=== PATIENT | female | born 1950 | race Caucasian/White ===

== ENCOUNTER 2016-07-03 19:46 | Emergency (ER) | payer MEDICARE ==
[~2016-07-03] VITALS: Ht 167.6 cm; Wt 65.0 kg
[2016-07-03 19:49] VITALS: BP 210/89; PULSE 89; RESP 15; TEMP 97.1; O2SAT 100
[2016-07-03] MEDS ORDERED: ATOR20TA15 PO (21:43)
[2016-07-03] MEDS ORDERED: LEVO50TA4 PO (21:43)
[2016-07-03] MEDS ORDERED: GLIP5TAB8 PO (21:43)
[2016-07-03] MEDS ORDERED: METF1000 PO (21:43)
[2016-07-03] MEDS ORDERED: DIAZ5TAB PO (21:43)
[2016-07-03] MEDS ORDERED: SODIUM CHLORIDE 0.9% FLUSH 10 ML FLUSH IV FLUSH PRN (22:00)
[2016-07-03] MEDS ORDERED: SODIUM CHLOR 0.9% 1000 ML INJ 1,000 ML IV SCH (22:00)
[2016-07-03] MEDS ORDERED: ONDANSETRON HCL 4 MG/2 ML VIAL IVP ONE (22:00)
[2016-07-03] MEDS ORDERED: MORPHINE SULFATE 8 MG/ML INJ IV PUSH ONE (22:00)
[2016-07-03 22:46] LABS: BASOPHIL % 0.6 % (0.0-2.0); EOSINOPHIL # 0.1 TH/MM3 (0-0.4); EOSINOPHIL % 1.5 % (0.0-4.0); HEMATOCRIT 34.8 % (35.0-46.0); HEMO FLAGS DIFF FINAL; LYMPH % 25.5 % (9.0-44.0); LYMPHOCYTE # 1.5 TH/MM3 (1.0-4.8); MEAN CELL VOLUME 91.3 FL (80.0-100.0); MEAN CORPUSCULAR HEMOGLOBIN 31.9 PG (27.0-34.0); MEAN CORPUSCULAR HGB CONC 34.9 % (32.0-36.0); MONO % 6.7 % (0.0-8.0); NEUT % 65.7 % (16.0-70.0); PLATELET COUNT 254 TH/MM3 (150-450); RED BLOOD COUNT 3.82 MIL/MM3 (4.00-5.30); RED CELL DISTRIBUTION WIDTH 12.8 % (11.6-17.2); WHITE BLOOD COUNT 6.1 TH/MM3 (4.0-11.0)
[2016-07-03 22:48] LABS: BLOOD, URINE NEG (NEG); COMMENT (UR) CULT NOT INDICATED; CULTURE IF INDICATED CULT NOT INDICATED; GLUCOSE,URINE NEG (NEG); KETONE, URINE TRACE mg/dL (NEG); NITRITE,URINE NEG (NEG); PH, URINE 5.5 (5.0-8.5); SQUAMOUS EPITHELIAL CELL URINE <1 /hpf (0-5); URINE COLOR LIGHT-YELLOW (YELLW/STRAW)
[2016-07-03 22:55] VITALS: O2SAT 100
[2016-07-03 23:00] VITALS: BP 158/78; PULSE 64; RESP 18; O2SAT 98
[2016-07-03 23:00] LABS: ANION GAP 8 MEQ/L (5-15); AST (GOT) 28 U/L (15-37); BICARBONATE 26.6 MEQ/L (21.0-32.0); BLOOD UREA NITROGEN 11 MG/DL (7-18); CHLORIDE 97 MEQ/L (98-107); GLOMERULAR FILTRATION RATE 89 ML/MIN (>89); SODIUM (NA) 132 MEQ/L (136-145)
[2016-07-03 23:04] LABS: ALKALINE PHOSPHATASE 67 U/L (45-117); ALT (GPT) 44 U/L (10-53); TOTAL BILIRUBIN ADULT 1.1 MG/DL (0.2-1.0)
--- NOTE | 2016-07-04 00:34 | PD ---
HPI Chief Complaint: Back/ Neck Pain or Injury Time Seen by Provider: 22:00 Travel History International Travel<30 days: No Contact w/Intl Traveler<30days: No Traveled to known affect area: No History of Present Illness HPI 66-year-old female complains of pain in the right flank for 4 days. It started when she woke up. Pain radiates to mid-thoracic spine. Pain is worse with supine positioning and sitting. It's better with standing positions and ambulation. No perianal/perineal numbness/paresthesia. No fecal/urinary incontinence. PFSH Past Medical History High Cholesterol: Yes Diabetes: Yes Patient Takes Glucophage: Yes Thyroid Disease: Yes Tetanus Vaccination: < 5 Years Influenza Vaccination: No : 2 Para: 2 Tubal Ligation: Yes Social History Alcohol Use: Yes (occ.) Tobacco Use: No Substance Use: No Allergies-Medications (Allergen,Severity, Reaction): Coded Allergies: No Known Allergies (Unverified , 07/03/16) Reported Meds & Prescriptions Reported Meds & Active Scripts Active Lortab (Hydrocodone-Acetaminophen) 5-325 Mg Tab 1-2 Tab PO Q6H PRN Reported Levothyroxine (Levothyroxine Sodium) 50 Mcg Tab 50 Mcg PO DAILY Diazepam 5 Mg Tab 5 Mg PO DAILY Glipizide 5 Mg Tab 5 Mg PO BIDAC Take 30 minutes before a meal Metformin (Metformin HCl) 1,000 Mg Tab 1,000 Mg PO BIDPC With meals Atorvastatin (Atorvastatin Calcium) 20 Mg Tab 20 Mg PO HS Physical Exam Narrative GENERAL: 66 yo F, WNWD, moderate distress SKIN: Warm and dry. HEAD: Atraumatic. Normocephalic. EYES: Pupils equal and round. No scleral icterus. No injection or drainage. ENT: No nasal bleeding or discharge. Mucous membranes pink and moist. NECK: Trachea midline. No JVD. CARDIOVASCULAR: Regular rate and rhythm. RESPIRATORY: No accessory muscle use. Clear to auscultation. Breath sounds equal bilaterally. GASTROINTESTINAL: Abdomen soft, non-tender, nondistended. Hepatic and splenic margins not palpable. MUSCULOSKELETAL: TTP R flank and midline lower thoracic spine. Ambulatory. No gross deformity. NEUROLOGICAL: Awake and alert. No obvious cranial nerve deficits. Motor grossly within normal limits. Five out of 5 muscle strength in the arms and legs. Normal speech. PSYCHIATRIC: Appropriate mood and affect; insight and judgment normal. Data Data Last Documented VS Vital Signs Date Time Temp Pulse Resp B/P Pulse Ox O2 Delivery O2 Flow Rate FiO2 07/03/16 23:00 64 18 158/78 98 Room Air 07/03/16 19:49 97.1 VS reviewed Orders Complete Blood Count With Diff (07/03/16 22:00) Comprehensive Metabolic Panel (07/03/16 22:00) Lipase (07/03/16 22:00) Urinalysis - C+S If Indicated (07/03/16 22:00) Ct Abd/Pel W Iv Contrast(Rout) (07/03/16 22:00) Iv Access Insert/Monitor (07/03/16 22:00) Ecg Monitoring (07/03/16 22:00) Oximetry (07/03/16 22:00) Ondansetron Inj (Zofran Inj) (07/03/16 22:00) Sodium Chlor 0.9% 1000 Ml Inj (Ns 1000 M (07/03/16 22:00) Sodium Chloride 0.9% Flush (Ns Flush) (07/03/16 22:00) Morphine Inj (Morphine Inj) (07/03/16 22:00) Iohexol 350 Inj (Omnipaque 350 Inj) (07/04/16 00:44) Labs Laboratory Tests Test 07/03/16 22:14 White Blood Count 6.1 TH/MM3 Red Blood Count 3.82 MIL/MM3 Hemoglobin 12.2 GM/DL Hematocrit 34.8 % Mean Corpuscular Volume 91.3 FL Mean Corpuscular Hemoglobin 31.9 PG Mean Corpuscular Hemoglobin 34.9 % Concent Red Cell Distribution Width 12.8 % Platelet Count 254 TH/MM3 Mean Platelet Volume 9.5 FL Neutrophils (%) (Auto) 65.7 % Lymphocytes (%) (Auto) 25.5 % Monocytes (%) (Auto) 6.7 % Eosinophils (%) (Auto) 1.5 % Basophils (%) (Auto) 0.6 % Neutrophils # (Auto) 4.0 TH/MM3 Lymphocytes # (Auto) 1.5 TH/MM3 Monocytes # (Auto) 0.4 TH/MM3 Eosinophils # (Auto) 0.1 TH/MM3 Basophils # (Auto) 0.0 TH/MM3 CBC Comment DIFF FINAL Differential Comment Urine Color LIGHT-YELLOW Urine Turbidity CLEAR Urine pH 5.5 Urine Specific Addison 1.008 Urine Protein NEG mg/dL Urine Glucose (UA) NEG mg/dL Urine Ketones TRACE mg/dL Urine Occult Blood NEG Urine Nitrite NEG Urine Bilirubin NEG Urine Urobilinogen LESS THAN 2.0 MG/DL Urine Leukocyte Esterase SMALL Urine RBC LESS THAN 1 /hpf Urine WBC 3 /hpf Urine Squamous Epithelial <1 /hpf Cells Microscopic Urinalysis Comment CULT NOT INDICATED Sodium Level 132 MEQ/L Potassium Level 4.0 MEQ/L Chloride Level 97 MEQ/L Carbon Dioxide Level 26.6 MEQ/L Anion Gap 8 MEQ/L Blood Urea Nitrogen 11 MG/DL Creatinine 0.66 MG/DL Estimat Glomerular Filtration 89 ML/MIN Rate Random Glucose 125 MG/DL Calcium Level 8.6 MG/DL Total Bilirubin 1.1 MG/DL Aspartate Amino Transf 28 U/L (AST/SGOT) Alanine Aminotransferase 44 U/L (ALT/SGPT) Alkaline Phosphatase 67 U/L Total Protein 7.0 GM/DL Albumin 4.2 GM/DL Lipase 365 U/L [facility] Medical Decision Making Medical Screen Exam Complete: Yes Emergency Medical Condition: Yes Differential Diagnosis Constipation, Gastritis, Acute Cholecystitis, Biliary Colic, Pancreatitis, WALKER , Hepatitis, Bowel Obstruction, Cystitis, Mesenteric Ischemia, AAA, Appendicitis , Renal Stone/Hydronephrosis, GERD, perforated viscous, Myofascial strain, vertebral body injury, intervertebral body injury Narrative Course CBC & BMP Diagram 07/03/16 22:14 LFTs normal Lipase normal UA: No UTI CT ab/pel: mild hepatic steatosis, borderlin wall thickenign of the duodenum and prox jejunum, uterus is borerline prominent ofr patient's age Diagnosis Primary Impression: Back pain Qualified Code: M54.5 - Chronic right-sided low back pain without sciatica Additional Impressions: Uterine enlargement Hepatic steatosis Bowel wall thickening Referrals: DR LUCIA 2 days Primary Care Physician 2 days Additional Instructions: You have a choice when it comes to health care, and we are glad that you chose [facility]. Hopefully, we have met your expectations on today's visit. You are welcome to return to [facility] at any time, as we are committed to meeting the health care needs of our community. Follow-up with primary care provider for an outpatient pelvic sonogram due to borderline enlargement of the uterus. There is borderline wall thickening of the duodenum and proximal jejunum. Please follow-up with your primary care provider for this as well. Med/Other Pt SpecificInfo: Wound Care Scripts Hydrocodone-Acetaminophen (Lortab)5-325 Mg Tab1-2 Tab PO Q6H PRN (PAIN SCALE 6 TO 10) #15 TAB Ref 0 Prov:Moose Roach MD 07/04/16 Disposition: 01 DISCHARGE HOME Condition: Stable Moose Roach MD July 04, 2016 00:34
[2016-07-04] MEDS ORDERED: IOHEXOL 350 MG/ML 10 ML VIAL (for RAD DIAG) IV ONE (00:44)
--- NOTE | 2016-07-04 00:50 | RADRPT ---
EXAM DATE/TIME: 07/04/2016 00:31 [facility] COMPARISON: No previous studies available for comparison. INDICATIONS : Right flank pain. IV CONTRAST: 100 cc Omnipaque 350 (iohexol) IV ORAL CONTRAST: No oral contrast ingested. RADIATION DOSE: 7.75 CTDIvol (mGy) MEDICAL HISTORY : Diabetes. SURGICAL HISTORY : Tubal ligation. ENCOUNTER: Initial ACUITY: 1 week PAIN SCALE: 6/10 LOCATION: Right flank TECHNIQUE: Volumetric scanning of the abdomen and pelvis was performed. Using automated exposure control and ad justment of the mA and/or kV according to patient size, radiation dose was kept as low as reasonably achievable to obtain optimal diagnostic quality images. FINDINGS: LOWER LUNGS: The visualized lower lungs are clear. LIVER: Decreased attenuation without lesion. There is no dilation of the biliary tree. No calcified gallst ones. SPLEEN: Normal size without lesion. PANCREAS: Within normal limits. KIDNEYS: Normal in size and shape. There is no mass, stone or hydronephrosis. ADRENAL GLANDS: Within normal limits. VASCULAR: There is no aortic aneurysm. BOWEL/MESENTERY: Borderline wall thickening of the duodenum and proximal jejunum. No inflammatory changes. The stomach and colon demonstrate no acute abnormality. There is no free intraperitoneal air or fluid. ABDOMINAL WALL: Within normal limits. RETROPERITONEUM: There is no lymphadenopathy. BLADDER: No wall thickening or mass. REPRODUCTIVE: Uterus is borderline prominent. INGUINAL: There is no lymphadenopathy or hernia. MUSCULOSKELETAL: Within normal limits for patient age. CONCLUSION: 1. Mild hepatic steatosis. 2. Borderline wall thickening of the duodenum and proximal jejunum. No inflammatory changes. 3. Normal appendix. No right-sided renal calculi. 4. Uterus is borderline prominent for patient's age. Outpatient pelvic sonogram recommended. Kai David MD on July 04, 2016 at 0:45 Board Certified Radiologist. This report was verified electronically.
[2016-07-04] MEDS ORDERED: HYDR-3533 PO (00:56)
== END 2016-07-04 01:25 | disposition home or self-care (01) ==
LOC: NEPD 19:46
DX: M54.5 Low back pain (principal); N85.2 Hypertrophy of uterus; K76.0 Fatty (change of) liver, not elsewhere classified
CPT/HCPCS: 74177; 80053; 81001; 83690; 85025; 96361; 96374; 96375; 99284; J2270; J2405; J7030; Q9967